=== PATIENT | female | born 1945 | race Caucasian/White ===

== ENCOUNTER → 2016-03-26 | Outpatient (CLI) | payer BC ==
--- NOTE | 2016-04-01 08:24 | CODING QUERY MEDICAL NECESSITY ---
SUPPORTING DIAGNOSIS NEEDED A supporting diagnosis is required for the test/procedure performed on this patient in order for us to be reimbursed by the patient's insurance. Please provide a supporting diagnosis for the following test/procedure listed below next to the test name along with your signature. *If there is no additional diagnosis for this patient that would support the following test/procedure please document that below next to the test/procedure. Test(s)/Procedure(s) that require a supporting diagnosis: * DXA BONE DENSITY DIAGNOSIS: * DOS: 03/26/16 Provider Signature: Date: Thank you Mere Farmer Health Information Management Once completed, please kindly fax back to [phone] For questions please call [phone]
== END | disposition home or self-care (01) ==
LOC: C.MAMM 11:18
PROVIDERS: ATTEND Family Medicine
DX: Z13.820 Encounter for screening for osteoporosis (principal)

== ENCOUNTER → 2016-07-28 | Outpatient (CLI) | payer BC ==
--- NOTE | 2016-07-29 14:53 | MAMMOGRAPHY REPORT ---
BILATERAL DIGITAL SCREENING MAMMOGRAM WITH CAD: 07/28/2016 CLINICAL HISTORY: Routine screening. Patient has no complaints. TECHNIQUE: Bilateral CC and MLO views were obtained. Current study was also evaluated with a Compu ter Aided Detection (CAD) system. COMPARISON: Comparison is made to exams dated: 06/24/2015 mammogram, 06/19/2014 mammogram, 05/23/2013 m ammogram, 05/19/2012 mammogram, 05/19/2011 mammogram, and 04/03/2010 mammogram - [facility]ter. BREAST COMPOSITION: There are scattered areas of fibroglandular density in both breasts. FINDINGS: The parenchymal pattern is similar to prior mammograms. There is a stable ribbon shaped metallic biopsy marker within the upper outer quadrant of the right breast. No developing mass, arc hitectural distortion or cluster of suspicious microcalcifications is seen in either breast. IMPRESSION: ACR BI-RADS CATEGORY 2: BENIGN There is no mammographic evidence of malignancy. A 1 year screening mammogram is recommended. The p atient will receive written notification of the results. Approximately 10% of breast cancers are not detected with mammography. A negative mammographic repor t should not delay biopsy if a clinically suggestive mass is present. Lindsey Maurer M.D. ay/:07/28/2016 16:16:35 Boat Outboard Engine Mechanic: Kendra ARDON(Thanh)(Mitra), [facility] letter sent: Normal 1/2 BI-RADS Code: ACR BI-RADS Category 2: Benign
== END | disposition home or self-care (01) ==
LOC: C.MAMM 14:47
PROVIDERS: ATTEND Obstetrics & Gynecology
DX: Z12.31 Encounter for screening mammogram for malignant neoplasm of breast (principal)

== ENCOUNTER 2019-05-31 11:22 | Observation (INO) ==
[2019-05-31] MEDS ORDERED: ONDANSETRON INJ 2 MG/ML 2 ML VIAL IV STA ×2 (11:46→14:45)
[2019-05-31] MEDS ORDERED: MoRPHine SULFATE 2 MG/ML CARP IV STA ×2 (11:46→14:45)
[2019-05-31] MEDS ORDERED: SODIUM CHLORIDE 0.9% 1000ML 500 ML IV ONE ×2 (11:46→13:06)
--- NOTE | 2019-05-31 12:05 | Emergency Department Note ---
History of Present Illness General Chief complaint: Back Injury/Pain Stated complaint: lower back pain History of Present Illness Maximum Pain Intensity: 9 This patient is a 73-year-old female who presents to the emergency department with complaints of flank pain that started at 9 AM this morning. It is sharp and stabbing in nature. No exacerbating or alleviating factors. Patient kendrao ught that it was may be gas pain. She did have a normal bowel movement this morning. No nausea or vomiting. She has not taken anything for the discomfort. It does not radiate down the legs. No fever. No known sick contacts. She has never experienced pain like this in the past. 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 Beliefs That Will Affect Care: None Current Living Situation: Alone Other Information That Helps Us Care for You: No Feels Safe at Home: Yes Safety Concerns: Feels Safe At This Time Smoking Status: Former smoker Smoking End Date: "many years ago" ; Hx Alcohol Use: Yes Alcohol type: beer and wine Hx Substance Use: No Review of Systems A total of 10 systems reviewed and were otherwise negative Physical Exam Vital Signs Vital Signs - 24 hr 05/31/19 11:24 05/31/19 12:27 05/31/19 14:02 Temperature 36.8 C Temperature Source Oral Pulse Rate 101 H Pulse Rate [Right Finger] 76 88 Pulse Rhythm Regular Pulse Rhythm [Right Finger] Pulse Strength Normal Respiratory Rate 20 22 Respiratory Effort / Characteristics Non-Labored Spontaneous Respiratory Depth Normal Respiratory Pattern Regular Blood Pressure 172/95 H Blood Pressure [Left Arm] 170/93 H Blood Pressure [Right Arm] 152/89 H Blood Pressure Mean 120 Blood Pressure Mean [Left Arm] 118 Blood Pressure Mean [Right Arm] 110 Blood Pressure Position [Right Arm] Sitting Pulse Oximetry 98 94 97 Oxygen Delivery Method Room Air Room Air Room Air Sepsis Recent Fever Within 48 Hours No Sepsis New/Unexplained Change in Mental Status No Sepsis Action Taken by Nursing No Action Required 05/31/19 15:03 05/31/19 15:13 05/31/19 17:16 Temperature Temperature Source Pulse Rate Pulse Rate [Right Finger] 94 H 64 108 H Pulse Rhythm Pulse Rhythm [Right Finger] Regular Pulse Strength Respiratory Rate 22 33 H 22 Respiratory Effort / Characteristics Non-Labored Spontaneous Respiratory Depth Normal Respiratory Pattern Regular Blood Pressure Blood Pressure [Left Arm] 132/90 158/87 H Blood Pressure [Right Arm] 132/90 Blood Pressure Mean Blood Pressure Mean [Left Arm] 104 110 Blood Pressure Mean [Right Arm] 104 Blood Pressure Position [Right Arm] Pulse Oximetry 92 20 L 93 Oxygen Delivery Method Room Air Room Air Room Air Sepsis Recent Fever Within 48 Hours Sepsis New/Unexplained Change in Mental Status Sepsis Action Taken by Nursing Constitutional WD/WN, vitals as above Eyes EOM intact bilaterally ENMT external ear and nose normal, oropharynx normal Neck trachea midline Respiratory normal respiratory effort, lungs clear to auscultation Cardiovascular RRR, no murmur, no edema Gastrointestinal (Abdomen) Bowel sounds hyperactive. No tenderness. No guarding or rebound tenderness. Negative CVA tenderness. Musculoskeletal no cyanosis or clubbing, extremities motor strength 5/5 No tenderness noted over the lumbar spinous processes. Dorsiflexion and plantarflexion intact bilaterally. DP pulse +2 bilaterally. Skin no rashes, warm and dry Neurologic Alert and oriented x3. No focal motor deficits. Psychiatric Acting appropriately Course Course Patient was seen and examined Vital signs including blood pressure were reviewed medications list was verified with patient Labs were obtained, and a saline lock was established Medications ordered Imaging performed and reviewed Upon reevaluation, the patient was still nauseated and having pain. She was ordered an additional round of medication. The patient was discussed with my supervising physician. Hospitalist consultation was performed. The patient was given a p.o. trial. The patient vomited after eating a few bites of applesauce and drinking soda. The patient will likely be reevaluated for inpatient management. Consultations Consultation #1: Dr. Reynolds Administered Medications Enoxaparin Sodium (Lovenox) 40 mg SQ Q24H KIARA Stop: 06/30/19 19:59 Last Admin: 05/31/19 20:24 Dose: 40 mg Documented by: [id number] Sodium Chloride (Nss 1000ml) 1,000 mls @ 100 mls/hr IV .Q10H KIARA Stop: 06/30/19 18:26 Last Admin: 05/31/19 20:24 Dose: 100 mls/hr Documented by: [id number] Discontinued Medications Dicyclomine HCl (Bentyl) 10 mg PO NOW ONE Stop: 05/31/19 13:23 Last Admin: 05/31/19 13:30 Dose: 10 mg Documented by: [id number] Famotidine (Pepcid 20mg Iv Push) 20 mg IV ONE STA Stop: 05/31/19 14:11 Last Admin: 05/31/19 14:14 Dose: 20 mg Documented by: [id number] Fentanyl Citrate (Fentanyl Citrate) 50 mcg IV Q15M PRN PRN Reason: Pain Stop: 06/14/19 13:21 Last Admin: 05/31/19 13:30 Dose: 50 mcg Documented by: [id number] Sodium Chloride (Nss 1000ml) 500 mls @ 999 mls/hr IV .Q31M ONE Stop: 05/31/19 12:16 Last Infusion: 05/31/19 12:41 Dose: 500 mls/hr Documented by: [id number] Admin: 05/31/19 12:03 Dose: 999 mls/hr Documented by: [id number] Sodium Chloride (Nss 1000ml) 500 mls @ 999 mls/hr IV .Q31M ONE Stop: 05/31/19 13:36 Last Infusion: 05/31/19 14:13 Dose: 0 mls/hr Documented by: [id number] Admin: 05/31/19 13:42 Dose: 999 mls/hr Documented by: [id number] Metoclopramide HCl (Reglan) 5 mg IV ONE ONE Stop: 05/31/19 14:11 Last Admin: 05/31/19 14:14 Dose: 5 mg Documented by: [id number] Morphine Sulfate (Morphine Sulfate) 2 mg IV NOW STA Stop: 05/31/19 11:47 Last Admin: 05/31/19 12:00 Dose: 2 mg Documented by: [id number] Morphine Sulfate (Morphine Sulfate) 2 mg IV NOW STA Stop: 05/31/19 14:46 Last Admin: 05/31/19 14:51 Dose: 2 mg Documented by: [id number] Ondansetron HCl (Zofran) 4 mg IV NOW STA Stop: 05/31/19 11:47 Last Admin: 05/31/19 12:00 Dose: 4 mg Documented by: [id number] Ondansetron HCl (Zofran) 4 mg IV NOW STA Stop: 05/31/19 14:46 Last Admin: 05/31/19 14:51 Dose: 4 mg Documented by: [id number] Simethicone (Mylicon) 80 mg PO NOW ONE Stop: 05/31/19 13:23 Last Admin: 05/31/19 13:31 Dose: 80 mg Documented by: [id number] Medical Decision Making Medical Records Attestation: I reviewed the patient's medical records. Home Medications Current Medication List: was personally reviewed by me Laboratory Data Attestation: I reviewed the patient's lab results. Result diagrams: 05/31/19 11:55 05/31/19 11:55 Lab Results 05/31/19 05/31/19 05/31/19 Range/Units 11:55 11:55 12:30 WBC 10.08 (4.8-10.8) K/uL RBC 4.84 (4.2-5.4) M/uL Hgb 15.6 (12.0-16.0) g/dL Hct 45.1 (37-47) % MCV 93.2 (80-100) fL MCH 32.2 (25-34) pg MCHC 34.6 (32-36) g/dL RDW Std Deviation 46.5 H (36.4-46.3) fL RDW Coeff of Jonny 13.6 (11.5-14.5) % Plt Count 305 (130-400) K/uL MPV 9.6 (7.4-10.4) fL Immature Gran % (Auto) 0.3 % Neut % (Auto) 73.1 % Lymph % (Auto) 19.3 % Schuyler % (Auto) 6.0 % Eos % (Auto) 0.8 % Baso % (Auto) 0.5 % Immature Gran # (Auto) 0.03 H (0.00-0.02) K/uL Neut # (Auto) 7.37 H (1.4-6.5) K/uL Lymph # (Auto) 1.95 (1.2-3.4) K/uL Schuyler # (Auto) 0.60 H (0.11-0.59) K/uL Eos # (Auto) 0.08 (0-0.5) K/uL Baso # (Auto) 0.05 (0-0.2) K/uL Sodium 133 L (136-145) mmol/L Potassium (3.5-5.1) mmol/L Chloride 98 (98-107) mmol/L Carbon Dioxide 28 (21-32) mmol/L Anion Gap 7.0 (3-11) BUN 10 (7-18) mg/dl Creatinine 0.74 (0.6-1.2) mg/dl Est Cr Clr Drug Dosing 66.7 ml/min Est GFR ( Amer) 91.9 Est GFR (Non-Af Amer) 79.3 BUN/Creatinine Ratio 12.9 (10-20) Glucose 109 H (70-99) mg/dl Calcium 10.2 H (8.5-10.1) mg/dl Total Bilirubin 0.6 (0.2-1) mg/dl AST (15-37) U/L ALT 24 (12-78) U/L Alkaline Phosphatase 89 (45-117) U/L Total Protein 8.6 H (6.4-8.2) gm/dl Albumin 4.2 (3.4-5.0) gm/dl Globulin 4.4 H (2.5-4.0) gm/dl Albumin/Globulin Ratio 1.0 (0.9-2) Lipase 152 (73-393) U/L Urine Color Yellow Urine Appearance Clear (Clear) Urine pH 6.5 (4.5-7.5) Ur Specific Crary 1.024 (1.000-1.030) Urine Protein Negative (Negative) Urine Glucose (UA) Negative (Negative) Urine Ketones Trace H (Negative) Urine Blood Negative (Negative) Urine Nitrite Negative (Negative) Urine Bilirubin Negative (Negative) Urine Urobilinogen Negative (Negative) Ur Leukocyte Esterase Trace H (Negative) Urine WBC (Auto) 1-5 (0-5) /hpf Urine RBC (Auto) 0-4 (0-4) /hpf U Hyaline Cast (Auto) 0 (0-5) /lpf U Epithel Cells (Auto) 20-30 H (0-5) /lpf Urine Bacteria (Auto) Negative (Negative) Imaging Data Attestation: I personally reviewed and interpreted this imaging study as follows: Radiologist's Impression: CT abdomen and pelvis without contrast IMPRESSION: Findings consistent with a generalized small bowel enteritis ACT 112: Negative or not required by law. The above report was generated using voice recognition software. It may contain grammatical, syntax or spelling errors. Electronically signed by: Magdiel Casas M.D. 05/31/2019 12:21 PM Dictated: 05/31/19 1219 Transcribed: 05/31/19 1219 Blood Pressure Blood Pressure Findings: Elevated blood pressure Blood Pressure Disposition: Referred to patients primary care provider MDM Narrative Differential diagnosis: Ureteral stone, pyelonephritis, musculoskeletal pain, bowel obstruction, enteritis, aneurysm, other vascular etiology, among others This patient is a 73-year-old female who presents to the emergency department with a main complaint of flank pain. On exam, she was tachycardic. She was afebrile. Abdomen was benign. Given the sudden onset of her symptoms, I was concerned for a possible ureteral stone. Imaging was performed and consistent with generalized small bowel enteritis. There is no leukocytosis. I am not concerned about gallbladder pathology. Unfortunately, because I could not get the patient's symptoms under control. Hospitalist consultation was felt to be warranted. They will evaluate the patient for likely inpatient management. Impression & Plan Enteritis, Intractable abdominal pain, Intractable nausea and vomiting Discharge Plan Visit Data *Final* Discharge Date/Time: 05/31/19 18:18 Chief Complaint: Back Injury/Pain Stated Complaint: lower back pain ED Provider: Ascencion Bolanos ED Midlevel Provider: Hoda Paulson Discharge Problem: Enteritis, Intractable abdominal pain, Intractable nausea and vomiting Patient Disposition: Admitted As Inpatient Discharge Instructions Interventions: ED Discharge Assessment Last Done: 05/31/19 18:18
[2019-05-31 12:19] LABS: Basophils # (auto) 0.05 K/uL (0-0.2); Basophils % (auto) 0.5 %; Eosinophils # (auto) 0.08 K/uL (0-0.5); Eosinophils % (auto) 0.8 %; Hematocrit (blood only) 45.1 % (37-47); Hemoglobin 15.6 g/dL (12.0-16.0); Immature Granulocytes # (auto) 0.03 K/uL (0.00-0.02); Immature Granulocytes % (auto) 0.3 %; Lymphocytes # (auto) 1.95 K/uL (1.2-3.4); Lymphocytes % (auto) 19.3 %; Mean Corpuscular Hemoglobin 32.2 pg (25-34); Mean Corpuscular Hgb Conc 34.6 g/dL (32-36); Mean Corpuscular Volume 93.2 fL (80-100); Mean Platelet Volume 9.6 fL (7.4-10.4); Neutrophils # (auto) 7.37 K/uL (1.4-6.5); Neutrophils % (auto) 73.1 %; Platelet Count 305 K/uL (130-400); RDW Coefficient of Variation 13.6 % (11.5-14.5); RDW Standard Deviation 46.5 fL (36.4-46.3); Red Blood Count 4.84 M/uL (4.2-5.4); White Blood Count 10.08 K/uL (4.8-10.8)
--- NOTE | 2019-05-31 12:22 | CT Scan Report ---
CT abd pelvis wo con CT DOSE: 517.27 mGy.cm HISTORY: Pain. Back pain. flank pain TECHNIQUE: Multiaxial CT images of the abdomen and pelvis were performed without contrast. A dose lo wering technique was utilized adhering to the principles of ALARA. COMPARISON STUDY: None. FINDINGS: Lung bases are clear. Liver spleen and pancreas appear unremarkable. Findings of multiple fluid-filled loops of small bowel. Trace amount of infiltrative change of the ro ot of the mesentery. No evidence for colonic dilatation. Bladder is collapsed. No significant abdominal or pelvic adenopathy. Kidneys negative for nephrocalcinosis or hydronephrosis. IMPRESSION: Findings consistent with a generalized small bowel enteritis ACT 112: Negative or not required by law. The above report was generated using voice recognition software. It may contain grammatical, syntax or spelling errors. Electronically signed by: Magdiel Casas M.D. 05/31/2019 12:21 PM
[2019-05-31 12:38] LABS: Albumin Level 4.2 gm/dl (3.4-5.0); BUN Creatinine Ratio 12.9 (10-20); Bilirubin,Total 0.6 mg/dl (0.2-1); Calcium 10.2 mg/dl (8.5-10.1); Creatinine Clr Calc Pharmacy 66.7 ml/min; Est GFR (African American) 91.9; Est GFR (Non-African American) 79.3; Globulin 4.4 gm/dl (2.5-4.0); Total Protein 8.6 gm/dl (6.4-8.2)
[2019-05-31 13:11] LABS: Appearance Urine Clear (Clear); Bacteria Urine Automated Negative (Negative); Bilirubin Urine Negative (Negative); Blood Urine Negative (Negative); Cast Urine Automated 0 /lpf (0-5); Color Urine Yellow; Epithelial Cell Urine Auto 20-30 /lpf (0-5); Glucose Urine UA Negative (Negative); Ketones Urine Trace (Negative); Leukocyte Esterase Urine Trace (Negative); Nitrite Urine Negative (Negative); Protein Urine Negative (Negative); RBC Urine Automated 0-4 /hpf (0-4); Specific Gravity Urine 1.024 (1.000-1.030); Urobilinogen Urine Negative (Negative); pH Urine 6.5 (4.5-7.5)
[2019-05-31] MEDS ORDERED: fentaNYL citrate 100 MCG/2 ML VIAL IV PRN (13:22)
[2019-05-31] MEDS ORDERED: SIMETHICONE 40 MG/0.6 ML 30ML PO ONE (13:22)
[2019-05-31] MEDS ORDERED: DICYCLOMINE HCL 10 MG CAP PO ONE (13:22)
[2019-05-31] MEDS ORDERED: METOCLOPRAMIDE HCL INJ 5 MG/ML 2 ML VIAL IV ONE (14:10)
[2019-05-31] MEDS ORDERED: FAMOTIDINE 20MG/5ML IV PUSH IV STA (14:10)
--- NOTE | 2019-05-31 17:29 | History & Physical Report ---
Date of Service May 31, 2019 Assessment & Plan (1) Enteritis: Patient with enteritis on the unenhanced CT of the abdomen pelvis. Patient without other infectious symptoms, suspect this may be mild ischemic etiology. For now we will place in observation. Will start clear liquid diet only, gentle IV hydration. Check lactate level. Hold off on antibiotics. Ask GI to evaluate for further recommendations. (2) Hypertension: Patient is hydrochlorothiazide, will continue for now. (3) Hyperlipidemia: Patient is on atorvastatin, will continue for now. History of Present Illness Primary Care Provider: Deandra Vásquez This is a 73-year-old female past medical history of IBD, hypertension, and hyperlipidemia that presents today complaining of abdominal pain with nausea vomiting. Patient is pleasant and good historian. Patient tells me she was fine until early this morning. She initially woke up and had some breakfast. She started with pain in her abdomen that was mostly over her right flank. This was sharp with some stabbing and became quite severe. At that time she had no nausea or vomiting. She had minimal radiation to the rest of her abdomen. She had no fevers chills. She also had no diarrhea and had a bowel movement earlier this morning. Patient came to the emergency room secondary to the pain. At the time my evaluation, the pain was very minimal almost resolved. Initially, I felt that the patient can likely be discharged home with essentially normal labs and nonspecific findings on her CAT scan. However, we did try to feed the patient a small amount of applesauce and Sprite which she promptly vomited up. Patient is now being placed in observation for intractable nausea and vomiting with abdominal pain. Allergies Allergy/AdvReac Type Severity Reaction Status Date / Time Tetracyclines Allergy Mild Rash Unverified 05/31/19 11:52 Home Medications Home Medications Medication Instructions Recorded Confirmed Type atorvastatin 10 mg PO DAILY 05/31/19 05/31/19 History hydrochlorothiazide 25 mg PO DAILY 05/31/19 05/31/19 History Past Med/Surg History Social History Feels Safe at Home: Yes Smoking Status: Former smoker Review of Systems Constitutional: no fever, no chills, no weakness, no weight loss and no weight gain Eyes: as per Subjective / HPI Respiratory: no cough, no chest congestion, no dyspnea and no dyspnea on exertion Cardiovascular: no chest pain, no orthopnea, no palpitations, no lightheadedness and no edema Gastrointestinal: + abdominal pain, + vomiting and + cramping; no belching, no heartburn, no nausea, no coffee ground emesis, no constipation and no diarrhea/loose stools Genitourinary: no dysuria, no difficulty urinating, no urinary frequency, no urinary hesitancy, no urinary urgency and no flank pain Musculoskeletal: no back pain, no neck pain, no joint pain, no stiffness and no myalgia Integumentary: no rash Neurologic: no gait abnormality, no unsteadiness, no falls and no generalized weakness Physical Exam Constitutional: cooperative; no acute distress Neck: trachea midline, no thyromegaly Respiratory: normal respiratory effort Auscultation: lungs clear to auscultation bilaterally; no crackles, no rales, no rhonchi and no wheezes Cardiovascular: Rate/Rhythm: regular rate and regular rhythm Heart Sounds: normal S1 and normal S2 Gastrointestinal (Abdomen): Inspection/Auscultation: abdomen normal to inspection Percussion/Palpation: abdomen soft; abdomen nontender, no guarding, abdomen not rigid and no hepatosplenomegaly Skin: no rashes, warm and dry Results & Data Vital Signs (Past 12 Hours) Vital Signs Temp Pulse Pulse Resp BP BP BP 05/31/19 17:16 108 H 22 158/87 H 05/31/19 15:13 64 33 H 132/90 05/31/19 15:03 94 H 22 132/90 05/31/19 14:02 88 22 170/93 H 05/31/19 12:27 76 152/89 H 05/31/19 11:24 36.8 C 101 H 20 172/95 H Pulse Ox 05/31/19 17:16 93 05/31/19 15:13 20 L 05/31/19 15:03 92 05/31/19 14:02 97 05/31/19 12:27 94 05/31/19 11:24 98 Laboratory Results WBCs of 10, hemoglobin 15.6, hematocrit of 45.1, platelet count of 305. Sodium 133, potassium was not measured secondary to hemolysis, Chloride 98, carbon dioxide 28, BUN of 10 with creatinine 0.74. Glucose of 109. Calcium 10.2. Transaminases incompletely measured secondary to hemolysis. Urinalysis with trace ketones, trace leuk esterases, 20-[address] Findings [address] abd pelvis wo con CT DOSE: 517.27 mGy.cm HISTORY: Pain. Back pain. flank pain TECHNIQUE: Multiaxial CT images of the abdomen and pelvis were performed without contrast. A dose lowering technique was utilized adhering to the principles of ALARA. COMPARISON STUDY: None. FINDINGS: Lung bases are clear. Liver spleen and pancreas appear unremarkable. Findings of multiple fluid-filled loops of small bowel. Trace amount of infiltrative change of the root of the mesentery. No evidence for colonic dilatation. Bladder is collapsed. No significant abdominal or pelvic adenopathy. Kidneys negative for nephrocalcinosis or hydronephrosis. IMPRESSION: Findings consistent with a generalized small bowel enteritis PG Care Time/CCT Total # of Minutes Spent Total Time Spent with Patient: Total time spent is greater than 50% in coordination of care (as documented) at patient's floor/unit and/or counseling patient: Coding Level of Care Code 35913 OBS Care - Level 3 Diagnoses Enteritis K52.9 Hypertension I10 Hyperlipidemia E78.5
[2019-05-31] MEDS ORDERED: ONDANSETRON INJ 2 MG/ML 2 ML VIAL IV PRN (18:27)
[2019-05-31] MEDS ORDERED: HYDROmorphone INJ 0.5 MG/0.5 ML SYR IV PRN (18:27)
[2019-05-31] MEDS ORDERED: ACETAMINOPHEN 325 MG TAB PO PRN (18:27)
[2019-05-31] MEDS ORDERED: ZOLPIDEM TARTRATE 5 MG TAB PO PRN (18:27)
[2019-05-31] MEDS ORDERED: ENOXAPARIN INJ 40 MG/0.4 ML SYR SQ SCH (20:00)
[2019-05-31] MEDS: SODIUM CHLORIDE 0.9% 1000ML 1,000 ML IV SCH (20:24)
[2019-06-01 06:25] LABS: Basophils # (auto) 0.04 K/uL (0-0.2); Basophils % (auto) 0.4 %; Immature Granulocytes # (auto) 0.02 K/uL (0.00-0.02); Immature Granulocytes % (auto) 0.2 %; Lymphocytes # (auto) 2.71 K/uL (1.2-3.4); Lymphocytes % (auto) 28.4 %; Mean Corpuscular Hemoglobin 31.2 pg (25-34); Mean Corpuscular Hgb Conc 33.3 g/dL (32-36); Mean Corpuscular Volume 93.5 fL (80-100); Mean Platelet Volume 9.8 fL (7.4-10.4); Monocytes # (auto) 0.93 K/uL (0.11-0.59); Monocytes % (auto) 9.7 %; Neutrophils # (auto) 5.74 K/uL (1.4-6.5); Neutrophils % (auto) 60.3 %; Platelet Count 260 K/uL (130-400); RDW Coefficient of Variation 13.7 % (11.5-14.5); RDW Standard Deviation 46.9 fL (36.4-46.3); Red Blood Count 3.85 M/uL (4.2-5.4); White Blood Count 9.54 K/uL (4.8-10.8)
[2019-06-01] MEDS: SODIUM CHLORIDE 0.9% 1000ML 1,000 ML IV SCH (06:35)
[2019-06-01 07:04] LABS: BUN Creatinine Ratio 9.6 (10-20); Calcium 8.7 mg/dl (8.5-10.1); Creatinine Clr Calc Pharmacy 74.7 ml/min; Est GFR (African American) 100.2; Est GFR (Non-African American) 86.4; Potassium 3.7 mmol/L (3.5-5.1)
[2019-06-01] MEDS ORDERED: Nursing to Pharmacy Communication ONE (08:46)
[2019-06-01] MEDS ORDERED: ATORVASTATIN 10 MG TAB PO SCH ×2 (09:00→21:00)
[2019-06-01] MEDS ORDERED: hydroCHLOROthiazide 25 MG TAB PO SCH (09:00)
--- NOTE | 2019-06-01 09:40 | Gastrointestinal Consultation ---
Date of Consultation June 01, 2019 Assessment & Plan (1) Enteritis: Given CT findings and clinical course, suspect a self-limited gastroenteritis. 1.Advance diet. 2.Stable for discharge from GI standpoint when cleared from primary team. 3.She was instructed to contact our office if any returning symptoms upon discharge. Supervising Physician Co-Signing Physician Notes I personally evaluated the patient and agree with the findings as documented by RENEE Nunez Exam: abd: soft, nt, nd History of Present Illness Reason for Consultation: Enteritis Requesting Physician: Dr. Martinez Attending Physician: John Martinez DO History of Present Illness Patient is a 73 year-old female with a history HTN and HLD admitted with acute back pain with associated nausea and vomiting. She states she did consume a a suspicious meal and symptoms followed this ingestion. States the pain resolved "after I got it all out". CT imaging was performed and demonstrated a nonspecific enteritis. She is currently asymptomatic. Tolerating clear liquid diet. Allergies Allergy/AdvReac Type Severity Reaction Status Date / Time Tetracyclines Allergy Mild Rash Unverified 05/31/19 11:52 Home Medications Home Medications Medication Instructions Recorded Confirmed Type atorvastatin 10 mg PO DAILY 05/31/19 05/31/19 History hydrochlorothiazide 25 mg PO DAILY 05/31/19 05/31/19 History Patient History Medical History Hyperlipidemia Social History Preferred Language: Thai Communication Ability: Effective Wildfire Prevention Specialist Required: No Beliefs That Will Affect Care: None Current Living Situation: Alone Other Information That Helps Us Care for You: No Feels Safe at Home: Yes Safety Concerns: Feels Safe At This Time Smoking Status: Former smoker Smoking End Date: "many years ago" ; Hx Alcohol Use: Yes Alcohol type: beer and wine Hx Substance Use: No Review of Systems Review of Systems: All systems reviewed & are unremarkable except as noted in HPI & below Physical Exam Constitutional: WD/WN, vitals as above Eyes: EOM intact bilaterally Neck: normal appearance Respiratory: normal respiratory effort, lungs clear to auscultation Cardiovascular: Rate/Rhythm: regular rate and regular rhythm Heart Sounds: no gallop and no murmur Gastrointestinal (Abdomen): normal bowel sounds, soft, nontender, no hepatosplenomegaly Inspection/Auscultation: abdomen not distended Musculoskeletal: Extremities: no cyanosis no lower extremity edema Skin: no rashes, warm and dry Neurologic: moves all extremities Psychiatric: A+Ox3, euthymic affect Results & Data ([facility]) Vital Signs (Past 12 Hours) Vital Signs Temp Pulse Resp BP Pulse Ox 06/01/19 07:00 36.6 C 78 18 132/72 90 05/31/19 23:02 36.6 C 86 22 114/74 94 Laboratory Results Abnormal lab results 05/31/19 05/31/19 05/31/19 Range/Units 11:55 11:55 12:30 RBC (4.2-5.4) M/uL Hct (37-47) % RDW Std Deviation 46.5 H (36.4-46.3) fL Immature Gran # (Auto) 0.03 H (0.00-0.02) K/uL Neut # (Auto) 7.37 H (1.4-6.5) K/uL Rutherford # (Auto) 0.60 H (0.11-0.59) K/uL Sodium 133 L (136-145) mmol/L BUN (7-18) mg/dl BUN/Creatinine Ratio (10-20) Glucose 109 H (70-99) mg/dl Calcium 10.2 H (8.5-10.1) mg/dl Total Protein 8.6 H (6.4-8.2) gm/dl Globulin 4.4 H (2.5-4.0) gm/dl Urine Ketones Trace H (Negative) Ur Leukocyte Esterase Trace H (Negative) U Epithel Cells (Auto) 20-30 H (0-5) /lpf 06/01/19 06/01/19 Range/Units 04:51 04:51 RBC 3.85 L (4.2-5.4) M/uL Hct 36.0 L (37-47) % RDW Std Deviation 46.9 H (36.4-46.3) fL Immature Gran # (Auto) (0.00-0.02) K/uL Neut # (Auto) (1.4-6.5) K/uL [place]ford # (Auto) 0.93 H (0.11-0.59) K/uL Sodium (136-145) mmol/L BUN 6 L (7-18) mg/dl BUN/Creatinine Ratio 9.6 L (10-20) Glucose (70-99) mg/dl Calcium (8.5-10.1) mg/dl Total Protein (6.4-8.2) gm/dl Globulin (2.5-4.0) gm/dl Urine Ketones (Negative) Ur Leukocyte Esterase (Negative) U Epithel Cells (Auto) (0-5) /lpf PG Care Time/CCT Total # of Minutes Spent Total Time Spent with Patient: Total time spent is greater than 50% in coordination of care (as documented) at patient's floor/unit and/or counseling patient: Coding Level of Care Code 50775 Initial Inpt Care Lvl 3 Diagnoses Enteritis K52.9
--- NOTE | 2019-06-01 11:41 | Discharge Summary ---
Date of Service June 01, 2019 Admission HPI Per Admitting Provider This is a 73-year-old female past medical history of IBD, hypertension, and hyperlipidemia that presents today complaining of abdominal pain with nausea vomiting. Patient is pleasant and good historian. Patient tells me she was fine until early this morning. She initially woke up and had some breakfast. She started with pain in her abdomen that was mostly over her right flank. This was sharp with some stabbing and became quite severe. At that time she had no nausea or vomiting. She had minimal radiation to the rest of her abdomen. She had no fevers chills. She also had no diarrhea and had a bowel movement earlier this morning. Patient came to the emergency room secondary to the pain. At the time my evaluation, the pain was very minimal almost resolved. Initially, I felt that the patient can likely be discharged home with essentially normal labs and nonspecific findings on her CAT scan. However, we did try to feed the patient a small amount of applesauce and Sprite which she promptly vomited up. Patient is now being placed in observation for intractable nausea and vomiting with abdominal pain. Admission Exam Per Admitting Provider Constitutional: cooperative; no acute distress Neck: trachea midline, no thyromegaly Respiratory: normal respiratory effort Auscultation: lungs clear to auscultation bilaterally; no crackles, no rales, no rhonchi and no wheezes Cardiovascular: Rate/Rhythm: regular rate and regular rhythm Heart Sounds: normal S1 and normal S2 Gastrointestinal (Abdomen): Inspection/Auscultation: abdomen normal to inspection Percussion/Palpation: abdomen soft; abdomen nontender, no guarding, abdomen not rigid and no hepatosplenomegaly Skin: no rashes, warm and dry Principal Diagnosis Gastroenteritis Discharge Exam General: Resting comfortably HEENT: NC/AT; PERRLA with EOMI; Hayden conjunctiva, MMM. No erythema of posterior pharynx Neck: Supple and nontender Cardiac: RRR Lungs: CTA bilaterally Abdomen: Bowel normoactive X 4; Nontender to palpation Extremities: Warm. No edema present Neuro: No focal weakness Skin: No rash Discharge Data Allergies Allergy/AdvReac Type Severity Reaction Status Date / Time Tetracyclines Allergy Mild Rash Unverified 05/31/19 11:52 Consultations 05/31/19 15:24 ED Decision to Admit Stat 05/31/19 18:27 Consult Gastroenterology Routine Ordered Studies 05/31/19 11:46 CT abd pelvis wo con Stat Hospital Course (1) Enteritis: Enteritis noted on CT of A/P. Lactic acid level was WNL -- is not related to ischemic colitis. Possibly related to recent food ingestion vs. viral infection. N/V is now completely resolved; tolerated clear liquid diet prior to discharge. GI consulted, symptoms were likely related to self limited gastroenteritis. (2) Hypertension: Continued HCTZ. (3) Hyperlipidemia: Continued Atorvastatin as prescribed. Discharged to home on 06/01/19. Total Time Total Time Spent Total Time Spent (In Minutes): >30 minutes Total Time Includes: Examination of the Patient, Discharge Planning, Medication Reconciliation, Communication With Other Providers and Other Discharge Plan Discharge Items Patient Disposition: Home - Self-Care Reason For Visit: ENTERITIS Discharge Diagnosis: Gastroenteritis Condition on Discharge: Good Goals: You have been hospitalized for an acute medical problem. During your stay at [facility], we have made an effort to correct the problem that brought you to the hospital while keeping you as comfortable as possible. Medications were used to bring your condition under control and your discharge instructions will include directions for any medications you should take after leaving the hospital. Please make sure you see your Primary Care Provider as part of your follow up plan. Activity: As commented below Non-emergency contact: Primary Care Provider Call non-emergency contact if: you have any medication questions, your symptoms worsen and you have a fever Follow-up/Referrals: Deandra Vásquez [Primary Care Provider] - 06/15/19 10:10 am (APPT WITH DR CHAVES) Diet: Full liquid Diet Comment: Advance diet as tolerated. Addtl Attending Provider Instructions: 1. Gastroenteritis * Please continue full liquid diet at home, advance as tolerated. * Drink plenty of fluids to avoid dehydration. * Please follow up with PCP in 7-10 days. Pending Studies at Discharge: No Stand-Alone Forms: My [facility] Medications and DC Order Prescriptions: Continued atorvastatin 10 mg tablet 10 mg PO DAILY RF: 0 hydrochlorothiazide 25 mg tablet 25 mg PO DAILY RF: 0 Discharge Orders: Discharge Order (Routine); Ordered 06/01/19 Ordered By: Virginia Maharaj Admission Data Admit Date/Time: 05/31/19 17:37 Attending Provider: John Martinez Admit Provider: Mario Reynolds Primary Care Provider: Deandra Vásquez Other Providers: Mario Reynolds ; Rom,Cliff León Other Interventions: Discharge Summary Assessment (RN) Last Done: 06/01/19 11:18 DC Date/Time DO NOT enter until pt leaves facility: 06/01/19 11:30 Supervising Physician Co-Signing Physician Notes Patient seen and examined on the day of discharge. I agree with the discharge summary by Virginia FOWLER. I have reviewed the chart including labs, imaging and plans for discharge. patient feeling much better, tolerating liquid diet, no abdominal pain, no nausea she wants to go home she attributes her reaction to corned beef she had at home vitals stable, labs stable, ready for d/c - Acute enteritis: likely from food ingestion symptoms resolving quickly will d/c to home, advance diet as tolerated can follow up with PCP if her symptoms persist, but otherwise she will be fine Coding Level of Care Code D/C Day Management >30 mins Diagnoses Enteritis K52.9 Hypertension I10 Hyperlipidemia E78.5
== END 2019-06-01 11:30 | disposition home or self-care (01) ==
LOC: 4W 11:22 → ED 11:22 → SUATTDRO 17:37 → 4W 18:18